=== PATIENT | male | born 1940 | race Caucasian/White ===

== ENCOUNTER 2017-05-02 06:51 | Day surgery (SDC) | payer MEDICARE ==
[~2017-05-02] VITALS: Ht 182.9 cm; Wt 99.3 kg
[~2017-05-02 06:51] MED LIST: AMLO10 PO; BENA20 PO; GLIP2.5ER PO; LOVA40 PO; METF500 PO; METO25ER PO
== END 2017-05-02 09:04 | disposition home or self-care (01) ==
LOC: ORSCSDS 06:51
PROVIDERS: Ophthalmology
PROC: 08RJ3JZ Replacement of Right Lens with Synthetic Substitute, Percutaneous Approach (ICD-10-PCS; principal; 2017-05-02 08:30)
DX: H25.11 Age-related nuclear cataract, right eye (principal); I10 Essential (primary) hypertension; E11.9 Type 2 diabetes mellitus without complications; E78.5 Hyperlipidemia, unspecified; K21.9 Gastro-esophageal reflux disease without esophagitis; Z79.82 Long term (current) use of aspirin; Z79.84 Long term (current) use of oral hypoglycemic drugs; Z79.899 Other long term (current) drug therapy
CPT/HCPCS: 82947; J2250; J3010; J3301; J7040; V2632

== ENCOUNTER 2017-06-27 06:04 | Day surgery (SDC) | payer MEDICARE ==
[~2017-06-27] VITALS: Ht 182.9 cm; Wt 99.6 kg
[2017-06-27] MEDS ORDERED: TAMS.4ER PO (06:38)
[2017-06-27] MEDS ORDERED: Coq-10100 MG PO (06:38)
[2017-06-27] MEDS ORDERED: FISH OIL 1,0001 EAC1 PO (06:38)
[2017-06-27] MEDS ORDERED: VITAMIN D32000 UNIT PO (06:39)
[2017-06-27] MEDS ORDERED: ASPI325 PO (06:39)
== END 2017-06-27 08:12 | disposition home or self-care (01) ==
LOC: ORSCSDS 06:04
PROVIDERS: Ophthalmology
PROC: 08RK3JZ Replacement of Left Lens with Synthetic Substitute, Percutaneous Approach (ICD-10-PCS; principal; 2017-06-27 07:30)
DX: H25.12 Age-related nuclear cataract, left eye (principal); E11.9 Type 2 diabetes mellitus without complications; I10 Essential (primary) hypertension; Z79.82 Long term (current) use of aspirin; Z79.899 Other long term (current) drug therapy
CPT/HCPCS: 82947; J2250; J3301; J7040; V2632

== ENCOUNTER → 2018-01-30 | Outpatient (CLI) | payer MEDICARE ==
[~2018-01-30] MED LIST changes: +ASPI325 PO; +Coq-10100 MG PO; +FISH OIL 1,0001 EAC1 PO; +TAMS.4ER PO; +VITAMIN D32000 UNIT PO
[2018-01-30 14:54] LABS: BASOPHILS ABSOLUTE AUTO 0.06 K/mm3 (0.00-0.23); BASOPHILS PERCENT AUTO 1 % (0-2); EOSINOPHILS ABSOLUTE AUTO 0.13 K/mm3 (0.00-0.68); EOSINOPHILS PERCENT AUTO 2 % (0-6); Hematocrit 43.2 % (37.0-53.0); Hemoglobin 14.2 g/dL (13.5-17.5); IMMATURE GRAN ABSOLUTE AUTO 0.02 K/mm3 (0.00-0.10); IMMATURE GRAN PERCENT AUTO 0 % (0-1); LYMPHOCYTES ABSOLUTE AUTO 1.44 K/mm3 (0.84-5.20); LYMPHOCYTES PERCENT AUTO 23 % (21-46); MONOCYTES ABSOLUTE AUTO 0.62 K/mm3 (0.16-1.47); MONOCYTES PERCENT AUTO 10 % (4-13); Mean Corpuscular HGB Conc 32.9 g/dL (31.5-36.5); Mean Corpuscular Volume 88 fL (80-100); Mean Platelet Volume 10.2 fL (9.1-12.4); NEUTROPHILS ABSOLUTE AUTO 4.09 K/mm3 (1.96-9.15); NEUTROPHILS PERCENT AUTO 65 % (41-73); Platelet Count 222 K/mm3 (150-400); RDW Coefficient Variation 13.7 % (11.7-14.2); RDW Standard Deviation 44.1 fL (35.1-46.3); Red Blood Cell Count 4.89 M/mm3 (4.30-5.90); White Blood Cell Count 6.36 K/mm3 (4.00-11.30)
[2018-01-30 15:18] LABS: Alanine Aminotransfer (ALT/SGP 28 U/L (12-78); Albumin, Blood 3.7 g/dL (3.4-5.0); Alk Phos 60 U/L (50-136); Anion Gap 7 mmol/L (6-16); Aspartate Aminotrans (AST/SGOT 20 U/L (12-37); Bilirubin, Total 0.5 mg/dL (0.1-1.0); Blood Urea Nitrogen 15 mg/dL (8-24); Bun/Creatinine Ratio 17.5 (12.0-20.0); CHOL/HDL RATIO 2.9; CO2, Blood 27 mmol/L (21-32); Calcium, Blood 8.6 mg/dL (8.5-10.1); Chloride, Blood 108 mmol/L (98-108); Cholesterol 154 mg/dL (50-200); Creatinine, Blood 0.86 mg/dL (0.60-1.20); Globulin, Blood 3.6 g/dL (2.2-4.0); Glomerular Filtration Rate >60 (60-); Glucose, Blood 147 mg/dL (70-99); HDL Cholesterol 53 mg/dL (>39); LDL/HDL RATIO 1.3; Low Density Lipoprotein Chol 70 mg/dL (0-110); Potassium, Blood 4.4 mmol/L (3.5-5.5); Sodium, Blood 142 mmol/L (136-145); Total Protein, Blood 7.3 g/dL (6.4-8.2); Triglycerides 153 mg/dL (30-160); Very Low Density Lipoprot Chol 30 mg/dL (6-32)
[2018-01-30 15:21] LABS: Thyroxine (T4) 8.9 ug/dL (4.5-12.1)
== END ==
LOC: LAB 10:10 → LAB SHORT 10:10
PROVIDERS: Family Medicine
DX: E11.9 Type 2 diabetes mellitus without complications (principal)
CPT/HCPCS: 80053; 80061; 84436; 84443; 85025

== ENCOUNTER 2018-11-26 09:28 | Emergency (ER) | payer MEDICARE ==
[~2018-11-26] VITALS: Ht 185.4 cm; Wt 104.3 kg
[2018-11-26] MEDS ORDERED: LOVA40 PO (09:58)
[2018-11-26] MEDS ORDERED: OMEPRAZOLE MAGN20 MG PO (10:00)
[2018-11-26 10:03] LABS: BASOPHILS ABSOLUTE AUTO 0.04 K/mm3 (0.00-0.23); BASOPHILS PERCENT AUTO 1 % (0-2); EOSINOPHILS ABSOLUTE AUTO 0.15 K/mm3 (0.00-0.68); EOSINOPHILS PERCENT AUTO 3 % (0-6); Hematocrit 39.7 % (37.0-53.0); Hemoglobin 12.9 g/dL (13.5-17.5); IMMATURE GRAN ABSOLUTE AUTO 0.02 K/mm3 (0.00-0.10); IMMATURE GRAN PERCENT AUTO 0 % (0-1); LYMPHOCYTES ABSOLUTE AUTO 1.32 K/mm3 (0.84-5.20); LYMPHOCYTES PERCENT AUTO 22 % (21-46); MONOCYTES PERCENT AUTO 9 % (4-13); Mean Corpuscular HGB 29.3 pg (26.0-34.0); Mean Corpuscular HGB Conc 32.5 g/dL (31.5-36.5); Mean Corpuscular Volume 90 fL (80-100); Mean Platelet Volume 10.1 fL (9.1-12.4); NEUTROPHILS ABSOLUTE AUTO 3.88 K/mm3 (1.96-9.15); NEUTROPHILS PERCENT AUTO 66 % (41-73); Platelet Count 226 K/mm3 (150-400); RDW Coefficient Variation 13.7 % (11.7-14.2); RDW Standard Deviation 45.5 fL (35.1-46.3); Red Blood Cell Count 4.41 M/mm3 (4.30-5.90); White Blood Cell Count 5.91 K/mm3 (4.00-11.30)
[2018-11-26 10:15] LABS: Alanine Aminotransfer (ALT/SGP 28 U/L (12-78); Albumin, Blood 3.4 g/dL (3.4-5.0); Alk Phos 59 U/L (50-136); Anion Gap 15 mmol/L (6-16); Aspartate Aminotrans (AST/SGOT 22 U/L (12-37); Bilirubin, Total 0.3 mg/dL (0.1-1.0); Blood Urea Nitrogen 17 mg/dL (8-24); Bun/Creatinine Ratio 19.3 (12.0-20.0); CO2, Blood 17 mmol/L (21-32); Calcium, Blood 8.3 mg/dL (8.5-10.1); Chloride, Blood 109 mmol/L (98-108); Creatinine, Blood 0.88 mg/dL (0.60-1.20); Globulin, Blood 3.4 g/dL (2.2-4.0); Glomerular Filtration Rate >60 (60-); Glucose, Blood 247 mg/dL (70-99); Potassium, Blood 3.9 mmol/L (3.5-5.5); Sodium, Blood 141 mmol/L (136-145); Total Protein, Blood 6.8 g/dL (6.4-8.2); Troponin I <0.015 ng/mL (0.000-0.040)
== END 2018-11-26 12:42 | disposition short-term general hospital (02) ==
LOC: ER 09:28
PROVIDERS: Emergency Medicine
DX: G93.9 Disorder of brain, unspecified (principal); R60.0 Localized edema; E11.65 Type 2 diabetes mellitus with hyperglycemia; E78.00 Pure hypercholesterolemia, unspecified; I10 Essential (primary) hypertension; Z88.0 Allergy status to penicillin; Z79.899 Other long term (current) drug therapy; Z79.84 Long term (current) use of oral hypoglycemic drugs; Z79.82 Long term (current) use of aspirin
CPT/HCPCS: 70450; 71046; 80053; 82947; 84484; 85025; 93005; 93010; 99285-25

== ENCOUNTER 2019-02-18 18:24 | Emergency (ER) | payer MEDICARE ==
[~2019-02-18] VITALS: Ht 185.4 cm; Wt 94.5 kg
[~2019-02-18 18:24] MED LIST changes: +OMEPRAZOLE MAGN20 MG PO
== END 2019-02-18 19:29 | disposition home or self-care (01) ==
LOC: ER 18:24
DX: I82.4Z1 Acute embolism and thrombosis of unspecified deep veins of right distal lower extremity (principal); I82.411 Acute embolism and thrombosis of right femoral vein; Z79.899 Other long term (current) drug therapy; Z79.84 Long term (current) use of oral hypoglycemic drugs; Z79.82 Long term (current) use of aspirin; M79.89 Other specified soft tissue disorders; R79.1 Abnormal coagulation profile; I82.811 Embolism and thrombosis of superficial veins of right lower extremity; R60.0 Localized edema
CPT/HCPCS: 93971; 96372; 99281-25; J1650

== ENCOUNTER 2019-02-19 16:35 | Emergency (ER) | payer MEDICARE ==
[~2019-02-19] VITALS: Ht 185.4 cm; Wt 94.3 kg
== END 2019-02-19 17:01 | disposition home or self-care (01) ==
LOC: ER 16:35
DX: I82.401 Acute embolism and thrombosis of unspecified deep veins of right lower extremity (principal); E11.9 Type 2 diabetes mellitus without complications; Z79.899 Other long term (current) drug therapy; Z79.84 Long term (current) use of oral hypoglycemic drugs; Z79.82 Long term (current) use of aspirin
CPT/HCPCS: 96372; 99281-25; J1650

== ENCOUNTER 2019-04-27 17:41 | Inpatient (IN) | payer MEDICARE ==
[~2019-04-27] VITALS: Ht 185.4 cm; Wt 97.6 kg
[2019-04-27 18:32] LABS: BASOPHILS ABSOLUTE AUTO 0.02 K/mm3 (0.00-0.23); BASOPHILS PERCENT AUTO 1 % (0-2); EOSINOPHILS ABSOLUTE AUTO 0.01 K/mm3 (0.00-0.68); EOSINOPHILS PERCENT AUTO 0 % (0-6); Hematocrit 34.9 % (37.0-53.0); Hemoglobin 11.5 g/dL (13.5-17.5); IMMATURE GRAN ABSOLUTE AUTO 0.02 K/mm3 (0.00-0.10); IMMATURE GRAN PERCENT AUTO 1 % (0-1); LYMPHOCYTES PERCENT AUTO 8 % (21-46); MONOCYTES ABSOLUTE AUTO 0.32 K/mm3 (0.16-1.47); MONOCYTES PERCENT AUTO 8 % (4-13); Mean Corpuscular HGB 31.1 pg (26.0-34.0); Mean Corpuscular Volume 94 fL (80-100); Mean Platelet Volume 8.7 fL (9.1-12.4); NEUTROPHILS ABSOLUTE AUTO 3.16 K/mm3 (1.96-9.15); NEUTROPHILS PERCENT AUTO 83 % (41-73); Platelet Count 140 K/mm3 (150-400); RDW Coefficient Variation 15.6 % (11.7-14.2); RDW Standard Deviation 54.2 fL (35.1-46.3); White Blood Cell Count 3.83 K/mm3 (4.00-11.30)
[2019-04-27] MEDS ORDERED: LEVE500 PO (18:38)
[2019-04-27] MEDS ORDERED: METO50ER PO (18:40)
[2019-04-27] MEDS ORDERED: LOTENSIN20 MG PO (18:40)
[2019-04-27] MEDS ORDERED: METF500C PO (18:41)
[2019-04-27] MEDS ORDERED: AMLO10 PO (18:42)
[2019-04-27] MEDS ORDERED: Lovastatin20 MG PO (18:42)
[2019-04-27] MEDS ORDERED: GLIP2.5ER PO (18:42)
[2019-04-27 18:50] LABS: Alanine Aminotransfer (ALT/SGP 30 U/L (12-78); Albumin, Blood 2.8 g/dL (3.4-5.0); Albumin/Globulin Ratio 0.9 (0.8-1.8); Alk Phos 46 U/L (50-136); Anion Gap 5 mmol/L (6-16); Aspartate Aminotrans (AST/SGOT 14 U/L (12-37); Bilirubin, Total 0.6 mg/dL (0.1-1.0); Blood Urea Nitrogen 10 mg/dL (8-24); CO2, Blood 26 mmol/L (21-32); Calcium, Blood 8.6 mg/dL (8.5-10.1); Chloride, Blood 104 mmol/L (98-108); Creatinine, Blood 0.71 mg/dL (0.60-1.20); Globulin, Blood 3.1 g/dL (2.2-4.0); Glomerular Filtration Rate >60 (60-); Glucose, Blood 273 mg/dL (70-99); Sodium, Blood 135 mmol/L (136-145); Total Protein, Blood 5.9 g/dL (6.4-8.2)
[2019-04-27] MEDS ORDERED: Dexamethasone4 MG PO (19:40)
[2019-04-27 19:41] LABS: Influenza A Negative (NEGATIVE); Influenza B Negative (NEGATIVE)
[2019-04-27] MEDS ORDERED: XARELTO20 MG PO (19:57)
[2019-04-27] MEDS ORDERED: ESOM20 PO (19:57)
[2019-04-27 23:13] LABS: Source, Urine Voided
[2019-04-27 23:56] LABS: Phosphorus, Blood 2.7 mg/dL (2.5-4.9); Troponin I <0.015 ng/mL (0.000-0.040)
[2019-04-28 00:11] LABS: Bilirubin, Urine Neg (Neg); Blood, Urine 1+ (Neg); Glucose Qualitative, Urine 4+ (Neg); Ketones, Urine 1+ (Neg); Leukocyte Esterase, Urine 3+ (Neg); Nitrite, Urine Neg (Neg); Protein, Urine Neg (Neg); Urobilinogen, Urine NORM (Normal); pH, Urine 6.5 (5.0-8.0)
[2019-04-28 00:12] LABS: Appearance, Urine Hazy (Clear); Color, Urine Yellow (P-Yellow)
[2019-04-28 00:25] LABS: Bacteria Mod /hpf; Mucus Light (0-Heavy); Red Blood Cells, Urine Not Seen /hpf (0-2); Squamous Epithelial Cells Not Seen /hpf (Few); White Blood Cells, Urine TNTC /hpf (0-5)
[2019-04-28 02:21] LABS: Adenovirus Not Detected (NOT DETECT); Bordetella pertussis Not Detected (NOT DETECT); Chlamydophila pneumoniae Not Detected (NOT DETECT); Coronavirus 229E Not Detected (NOT DETECT); Coronavirus HKU1 Not Detected (NOT DETECT); Coronavirus NL63 Not Detected (NOT DETECT); Coronavirus OC43 Not Detected (NOT DETECT); Human Metapneumovirus Not Detected (NOT DETECT); Human Rhinovirus/Enterovirus Not Detected (NOT DETECT); Influenza A/2009-H1 Not Detected (NOT DETECT); Influenza A/H1 Not Detected (NOT DETECT); Influenza A/H3 Not Detected (NOT DETECT); Influenza B Not Detected (NOT DETECT); Mycoplasma pneumoniae Not Detected (NOT DETECT); Parainfluenza Virus 1 Not Detected (NOT DETECT); Parainfluenza Virus 2 Not Detected (NOT DETECT); Parainfluenza Virus 3 Not Detected (NOT DETECT); Parainfluenza Virus 4 Not Detected (NOT DETECT); Respiratory Syncytial Virus Not Detected (NOT DETECT)
[2019-04-28 05:41] LABS: BASOPHILS ABSOLUTE AUTO 0.01 K/mm3 (0.00-0.23); BASOPHILS PERCENT AUTO 0 % (0-2); EOSINOPHILS ABSOLUTE AUTO 0.01 K/mm3 (0.00-0.68); EOSINOPHILS PERCENT AUTO 0 % (0-6); Hematocrit 28.6 % (37.0-53.0); Hemoglobin 9.6 g/dL (13.5-17.5); IMMATURE GRAN ABSOLUTE AUTO 0.01 K/mm3 (0.00-0.10); IMMATURE GRAN PERCENT AUTO 0 % (0-1); LYMPHOCYTES ABSOLUTE AUTO 0.29 K/mm3 (0.84-5.20); LYMPHOCYTES PERCENT AUTO 10 % (21-46); MONOCYTES ABSOLUTE AUTO 0.29 K/mm3 (0.16-1.47); MONOCYTES PERCENT AUTO 10 % (4-13); Mean Corpuscular HGB Conc 33.6 g/dL (31.5-36.5); Mean Corpuscular Volume 92 fL (80-100); Mean Platelet Volume 8.8 fL (9.1-12.4); NEUTROPHILS ABSOLUTE AUTO 2.25 K/mm3 (1.96-9.15); NEUTROPHILS PERCENT AUTO 79 % (41-73); Platelet Count 114 K/mm3 (150-400); RDW Coefficient Variation 15.3 % (11.7-14.2); RDW Standard Deviation 51.8 fL (35.1-46.3); White Blood Cell Count 2.86 K/mm3 (4.00-11.30)
[2019-04-28 06:06] LABS: Anion Gap 6 mmol/L (6-16); Blood Urea Nitrogen 5 mg/dL (8-24); Bun/Creatinine Ratio 6.8 (12.0-20.0); CO2, Blood 24 mmol/L (21-32); Calcium, Blood 7.9 mg/dL (8.5-10.1); Chloride, Blood 110 mmol/L (98-108); Creatinine, Blood 0.73 mg/dL (0.60-1.20); Glomerular Filtration Rate >60 (60-); Glucose, Blood 195 mg/dL (70-99); Potassium, Blood 3.4 mmol/L (3.5-5.5); Sodium, Blood 140 mmol/L (136-145)
--- NOTE | 2019-04-28 07:32 | NUR ---
SHIFT SUMMARY PATIENT ACCOMPANIED BY FAMILY TO THE UNIT. HAD A CRITICAL LACTIC ACID OF 4.1 AND WAS STARTED ON IV ANTIBIOTICS AND FLUIDS. SECOND IV STARTED IN LEFT FOREARM. BOTH IVS PATENT AND FLUSHED. PATIENT BLADDER SCANNED DUE TO HAVING URGENCY, FREQUENCY, AND BEING UNABLE TO HAVE ADEQUATE OUTPUT. TY CATHETER INSERTED. PATENT ABLE TO SLEEP COMFORTABLY SINCE CATHETER INSERTION. BED IN LOWEST POSITION WITH WHEELS LOCKED. CALL LIGHT WITHIN REACH. REPORT GIVEN TO ONCOMING RN.
--- NOTE | 2019-04-28 19:31 | NUR ---
SHIFT SUMMARY PT WORKED WITH PHYSICAL THERAPY AND WAS UP IN THE CHAIR FOR LUNCH. PT BEEN SLEEPING OFF AND ON THROUGHOUT THE SHIFT. TY PATENT AND DRAINING. URINE LESS RED THIS EVENING. IVF INFUSING WITHOUT DIFFICULTY. PT HAS HAD NO COMPLAINTS OF PAIN OR SHORTNESS OF BREATH. NO COMPLAINTS AT THIS TIME. FAMILY AT BEDSIDE. CALL LIGHT IN REACH. REPORT GIVEN TO MADELEINE REED.
--- NOTE | 2019-04-29 04:29 | NUR ---
SHIFT SUMMARY PT HAS HAD NO ACUTE CHANGES THIS SHIFT, NO C/O ANY KIND, PT HAS SLEPT T/O NIGHT W/SPOUSE AT BEDSIDE, CALL LIGHT IN REACH, WILL CONT TO [facility] UNTIL REPORT GIVEN TO DAY RN.
[2019-04-29 05:04] LABS: BASOPHILS ABSOLUTE AUTO 0.01 K/mm3 (0.00-0.23); BASOPHILS PERCENT AUTO 0 % (0-2); EOSINOPHILS ABSOLUTE AUTO 0.03 K/mm3 (0.00-0.68); EOSINOPHILS PERCENT AUTO 1 % (0-6); Hematocrit 27.9 % (37.0-53.0); Hemoglobin 9.3 g/dL (13.5-17.5); IMMATURE GRAN ABSOLUTE AUTO 0.03 K/mm3 (0.00-0.10); IMMATURE GRAN PERCENT AUTO 1 % (0-1); LYMPHOCYTES ABSOLUTE AUTO 0.36 K/mm3 (0.84-5.20); LYMPHOCYTES PERCENT AUTO 14 % (21-46); MONOCYTES ABSOLUTE AUTO 0.26 K/mm3 (0.16-1.47); MONOCYTES PERCENT AUTO 10 % (4-13); Mean Corpuscular HGB 31.4 pg (26.0-34.0); Mean Corpuscular HGB Conc 33.3 g/dL (31.5-36.5); Mean Corpuscular Volume 94 fL (80-100); Mean Platelet Volume 9.2 fL (9.1-12.4); NEUTROPHILS ABSOLUTE AUTO 1.91 K/mm3 (1.96-9.15); NEUTROPHILS PERCENT AUTO 73 % (41-73); Platelet Count 111 K/mm3 (150-400); RDW Coefficient Variation 15.2 % (11.7-14.2); RDW Standard Deviation 52.8 fL (35.1-46.3); Red Blood Cell Count 2.96 M/mm3 (4.30-5.90)
[2019-04-29 05:31] LABS: Anion Gap 7 mmol/L (6-16); Blood Urea Nitrogen 4 mg/dL (8-24); Bun/Creatinine Ratio 5.3 (12.0-20.0); CO2, Blood 23 mmol/L (21-32); Calcium, Blood 7.9 mg/dL (8.5-10.1); Chloride, Blood 109 mmol/L (98-108); Creatinine, Blood 0.76 mg/dL (0.60-1.20); Glomerular Filtration Rate >60 (60-); Glucose, Blood 168 mg/dL (70-99); Potassium, Blood 3.6 mmol/L (3.5-5.5); Sodium, Blood 139 mmol/L (136-145)
--- NOTE | 2019-04-29 14:44 | NUR ---
Patient resting in chair. denies fior pain or symptoms from family. Offered information on polst they would like to speak later.
--- NOTE | 2019-04-29 18:49 | NUR ---
SHIFT SUMMARY PT HAS BEEN UP IN CHAIR FOR ALL MEALS. NO COMPLAINTS OF PAIN OR SHORTNESS OF BREATH THIS AM. NO ACUTE CHANGES THIS SHIFT. IVF INFUSING WITHOUT DIFFICULTY. PT HAS HAD NO COMPLAINTS. PLANS FOR DISCHARGE TOMORROW. CALL LIGHT IN REACH AND SPOUSE AT BEDSIDE. WILL CONTINUE TO MONITOR AND REPORT TO ONCOMING RN.
--- NOTE | 2019-04-30 04:38 | NUR ---
SHIFT SUMMARY PT VERY DROWSY AND SLEEPS MOST OF THE NIGHT. AWAKES EASILY TO VERBAL STIMULI. SLOW TO RESPOND. HE HAS BEEN PLESANT AND COOPERATIVE WITH CARE, AND JUST WANTS TO SLEEP. IV ABX ADMINISTERED PER ORDERS. MAINTENANCE FLUIDS INFUSING AT THIS TIME. PT IS EAGERLY ANTICIPATING DC TODAY. NO ACUTE CHANGES TO REPORT. AT BEDSIDE T/O THE NIGHT. BED IN LOWEST POSITION, CALL LIGHT WITHIN REACH. WILL CONTINUE TO MONITOR AND REPORT TO ONCOMING RN.
[2019-04-30] MEDS ORDERED: LACT PO (12:05)
[2019-04-30] MEDS ORDERED: CEFP200 PO (12:06)
--- NOTE | 2019-04-30 15:30 | NUR ---
PT DISCHARGED FROM THE UNIT. IV'S REMOVED. MEDICATIONS FAXED TO [facility]. TY REMOVED, PT VOIDED TWICE AND EXPRESS FEELING OF BLADDER BEING EMPTIED COMPLETELY. HOSPITAL FOLLOW UP APPOINTMENT SCHEDULED. MEDICATIONS REVIEWED WITH FAMILY. PT LEFT UNIT VIA WHEEL CHAIR WITH FAMILY.
[2019-05-04] MEDS ORDERED: AMLO10 PO (17:10)
[2019-05-04] MEDS ORDERED: GLIP2.5ER PO (17:11)
[2019-05-04] MEDS ORDERED: Benazepril HCl40 MG PO (17:12)
[2019-05-04] MEDS ORDERED: LOVASTATIN20 MG PO (17:12)
[2019-05-04] MEDS ORDERED: Flomax0.4 MG PO (18:34)
[2019-05-04] MEDS ORDERED: LEVO750 PO (18:34)
== END 2019-04-30 13:17 | disposition home or self-care (01) | DRG 871 ==
LOC: ER 17:41 → MEDS 17:42 → ER 17:42 → MEDS 17:42 → ENPENDDIS 04-30 10:05 → MEDS 04-30 13:17
PROVIDERS: Emergency Medicine; Internal Medicine; Nurse Practitioner Acute Care; ADMIT Internal Medicine
DX: A41.9 Sepsis, unspecified organism (principal); D61.810 Antineoplastic chemotherapy induced pancytopenia; N39.0 Urinary tract infection, site not specified; C71.9 Malignant neoplasm of brain, unspecified; E44.0 Moderate protein-calorie malnutrition; R65.20 Severe sepsis without septic shock; E11.9 Type 2 diabetes mellitus without complications; I10 Essential (primary) hypertension; E87.6 Hypokalemia; I44.7 Left bundle-branch block, unspecified; T45.1X5A Adverse effect of antineoplastic and immunosuppressive drugs, initial encounter; G40.909 Epilepsy, unspecified, not intractable, without status epilepticus; Z66 Do not resuscitate; Z74.09 Other reduced mobility; Z86.718 Personal history of other venous thrombosis and embolism; Z92.21 Personal history of antineoplastic chemotherapy; Z79.84 Long term (current) use of oral hypoglycemic drugs; Z68.28 Body mass index [BMI] 28.0-28.9, adult
CPT/HCPCS: 0099U; 36415; 71046; 80048; 80053; 81001; 82947; 83605; 83880; 84100; 84145; 84443; 84484; 85025; 87040; 87086; 87804; 93005; 93010; 94640; 94760; 96361; 96365; 96366; 97110; 97116; 97162; 97530; 99285-25; A9270-GY; J0456; J0696; J1956; J7030; J7050; J7120

== ENCOUNTER 2019-05-02 10:23 | Emergency (ER) | payer MEDICARE ==
[~2019-05-02] VITALS: Ht 182.9 cm; Wt 74.8 kg
[~2019-05-02 10:23] MED LIST changes: +CEFP200 PO; +Dexamethasone4 MG PO; +ESOM20 PO; +LACT PO; +LEVE500 PO; +LOTENSIN20 MG PO; +Lovastatin20 MG PO; +METF500C PO; +METO50ER PO; +XARELTO20 MG PO
[2019-05-02 10:55] LABS: BASOPHILS ABSOLUTE AUTO 0.02 K/mm3 (0.00-0.23); BASOPHILS PERCENT AUTO 0 % (0-2); EOSINOPHILS ABSOLUTE AUTO 0.02 K/mm3 (0.00-0.68); EOSINOPHILS PERCENT AUTO 0 % (0-6); Hematocrit 33.1 % (37.0-53.0); Hemoglobin 11.1 g/dL (13.5-17.5); IMMATURE GRAN ABSOLUTE AUTO 0.04 K/mm3 (0.00-0.10); IMMATURE GRAN PERCENT AUTO 1 % (0-1); LYMPHOCYTES PERCENT AUTO 10 % (21-46); MONOCYTES ABSOLUTE AUTO 0.45 K/mm3 (0.16-1.47); MONOCYTES PERCENT AUTO 9 % (4-13); Mean Corpuscular HGB 31.3 pg (26.0-34.0); Mean Corpuscular HGB Conc 33.5 g/dL (31.5-36.5); Mean Corpuscular Volume 93 fL (80-100); NEUTROPHILS ABSOLUTE AUTO 4.08 K/mm3 (1.96-9.15); NEUTROPHILS PERCENT AUTO 80 % (41-73); Platelet Count 202 K/mm3 (150-400); RDW Standard Deviation 51.3 fL (35.1-46.3); Red Blood Cell Count 3.55 M/mm3 (4.30-5.90); White Blood Cell Count 5.11 K/mm3 (4.00-11.30)
[2019-05-02 11:19] LABS: Alanine Aminotransfer (ALT/SGP 26 U/L (12-78); Albumin, Blood 2.7 g/dL (3.4-5.0); Albumin/Globulin Ratio 0.7 (0.8-1.8); Alk Phos 53 U/L (50-136); Anion Gap 9 mmol/L (6-16); Aspartate Aminotrans (AST/SGOT 24 U/L (12-37); Bilirubin, Total 0.5 mg/dL (0.1-1.0); Blood Urea Nitrogen 6 mg/dL (8-24); Bun/Creatinine Ratio 8.4 (12.0-20.0); CO2, Blood 21 mmol/L (21-32); Calcium, Blood 8.6 mg/dL (8.5-10.1); Chloride, Blood 107 mmol/L (98-108); Creatinine, Blood 0.71 mg/dL (0.60-1.20); Globulin, Blood 3.9 g/dL (2.2-4.0); Glomerular Filtration Rate >60 (60-); Glucose, Blood 214 mg/dL (70-99); Potassium, Blood 3.6 mmol/L (3.5-5.5); Sodium, Blood 137 mmol/L (136-145); Total Protein, Blood 6.6 g/dL (6.4-8.2)
[2019-05-02 11:47] LABS: Source, Urine Clean Catch
[2019-05-02 12:00] LABS: Bilirubin, Urine Neg (Neg); Blood, Urine 4+ (Neg); Glucose Qualitative, Urine 2+ (Neg); Ketones, Urine 2+ (Neg); Leukocyte Esterase, Urine Neg (Neg); Nitrite, Urine Neg (Neg); Protein, Urine Neg (Neg); Specific Gravity, Urine 1.005 (1.003-1.022); Urobilinogen, Urine NORM (Normal)
[2019-05-02 12:26] LABS: Appearance, Urine Clear (Clear); Color, Urine Yellow (P-Yellow)
[2019-05-02 12:28] LABS: Bacteria Not Seen /hpf; Squamous Epithelial Cells Not Seen /hpf (Few); White Blood Cells, Urine 0-2 /hpf (0-5)
[2019-05-02] MEDS ORDERED: Flomax0.4 MG PO (13:15)
[2019-05-04] MEDS ORDERED: AMLO10 PO (17:10)
[2019-05-04] MEDS ORDERED: GLIP2.5ER PO (17:11)
[2019-05-04] MEDS ORDERED: LOVASTATIN20 MG PO (17:12)
[2019-05-04] MEDS ORDERED: Benazepril HCl40 MG PO (17:12)
[2019-05-04] MEDS ORDERED: LEVO750 PO (18:34)
[2019-05-04] MEDS ORDERED: Flomax0.4 MG PO (18:34)
== END 2019-05-02 13:40 | disposition home or self-care (01) ==
LOC: ER 10:23
PROVIDERS: Emergency Medicine
DX: N39.0 Urinary tract infection, site not specified (principal); R33.9 Retention of urine, unspecified; E11.9 Type 2 diabetes mellitus without complications; Z88.0 Allergy status to penicillin; Z79.899 Other long term (current) drug therapy
CPT/HCPCS: 51702; 51798; 80053; 81001; 85025; 99283-25

== ENCOUNTER 2019-06-11 10:38 | Emergency (ER) | payer MEDICARE ==
[~2019-06-11] VITALS: Ht 185.4 cm; Wt 95.2 kg
[~2019-06-11 10:38] MED LIST changes: +Benazepril HCl40 MG PO; +Flomax0.4 MG PO; +LEVO750 PO; +LOVASTATIN20 MG PO
== END 2019-06-11 12:21 | disposition home or self-care (01) ==
LOC: ER 10:38
DX: S76.011A Strain of muscle, fascia and tendon of right hip, initial encounter (principal); E11.9 Type 2 diabetes mellitus without complications; Z88.0 Allergy status to penicillin; Z79.899 Other long term (current) drug therapy; Z79.84 Long term (current) use of oral hypoglycemic drugs; W07.XXXD Fall from chair, subsequent encounter
CPT/HCPCS: 73502; 99283-25